=== PATIENT | female | born 1980 | race Two or more races ===

== ENCOUNTER 2025-01-27 20:02 | Emergency (ER) | payer OTHER, SELFPAY ==
[2025-01-27 20:06] VITALS: BP 224/126; PULSE 86; PULSE 91; RESP 18; TEMP 37; O2SAT 95; O2SAT 97
--- NOTE | 2025-01-27 20:13 | EKG_ITS ---
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
[2025-01-27 20:14] VITALS: BMI 44.2
--- NOTE | 2025-01-27 20:25 | PD.EDHA ---
ED Headache RME/HPI General Chief Complaint: Headache Stated Complaint: HEADACHE Time Seen by Provider: 01/27/25 20:23 Arrival date/time: 01/27/25 20:02 RME / HPI RME / HPI Narrative: Dr. Parker?s Main ED Evaluation: 44yo female with a history of HTN, DM BIBA from home presents to the ED for a chief complaint of gradually increasing headache that started at 1830. Patient notes having nausea, but no emesis. No visual disturbances or motor/sensory disturbances. Anknowledges sporadically taking antihypertensive medications, most recently 2 days FUNDRAISER. Baseline blood pressure is 140 systolically when controlled. Related Data Home Medications ?Medication ?Instructions ?Recorded ?Confirmed amlodipine 10 mg tablet (Norvasc) 10 mg PO QDAY 11/09/17 05/17/19 lisinopril 10 mg tablet 10 mg PO QDAY 11/09/17 05/17/19 metformin 500 mg tablet 1,000 mg PO BID 11/09/17 05/17/19 Previous Rx's ?Medication ?Instructions ?Recorded ibuprofen 600 mg tablet 600 mg PO Q8H PRN fever #30 tabs 11/09/17 albuterol sulfate 90 mcg/actuation 2 puff inhalation Q6H PRN cough / 07/11/20 aerosol inhaler wheezing #6.7 grams azithromycin 250 mg tablet See Rx Instructions PO .COMPLEX #6 07/11/20 (Zithromax) tabs inhalational spacing device #1 ea 07/11/20 (Aerochamber MV spacer) meclizine 25 mg tablet 25 mg PO BID PRN dizziness #10 tabs 02/19/22 amlodipine 5 mg tablet 5 mg PO QDAY #30 tabs 01/28/25 lisinopril 20 mg tablet 20 mg PO QDAY #30 tabs 01/28/25 Allergies Allergy/AdvReac Type Severity Reaction Status Date / Time topiramate Allergy Intermediate HEART Verified 02/19/22 16:55 STOPPED codeine Allergy Mild PROFUSE Verified 02/19/22 16:55 VOMIT Review of Systems Review of Systems Systems Reviewed: All systems reviewed, normal except as documented Past Medical History Past Medical History CARDIAC: Positive Cardiac Disorders and Hypertension; Negative Congestive Heart Failure RESPIRATORY: Negative Chronic Obstructive Pulmonary Disease (COPD) GENITOURINARY: Negative Renal Disease ENDOCRINE: Positive Endocrine Disorders and Diabetes Mellitus Type 2; Negative Diabetes Mellitus Type 1 Social History SMOKING STATUS: Never smoker ED Exam Narrative Physical exam: GENERAL APPEARANCE: alert and oriented x 4, markedly hypertensive, c/o headache, notably obese, well-developed, well-nourished, no acute distress VITALS: All vitals were reviewed and the pulse ox is 95% on room air, which is normal according to my interpretation. HEENT: Normocephalic, atraumatic; pupils equal, round, reactive to light; EOMI; mucous membranes pink, moist; oropharynx clear NECK: Supple LUNGS: CTABL; no wheezes, no rales, no rhonchi HEART: Regular rate, regular rhythm; normal S1, S2; no murmurs ABDOMEN: non distended; normal BS; soft, no tenderness, no guarding, no rebound; no masses, no organomegaly, no hernia BACK: no CVA tenderness EXTREMITIES: atraumatic; no edema NEUROLOGIC: awake; alert and oriented x4; cranial nerves II-XII grossly intact; no focal sensory or motor deficits PSYCHIATRIC: appropriate mood and affect SKIN: warm, dry, normal color; no rashes Course Quality Measures none Orders Category Date Time Status EKG (ED ONLY) *Do not use* NOW Care 01/27/25 20:14 Completed EKG (ED Only) Stat Exams 01/27/25 20:13 Draft XR chest 1V portable Stat Exams 01/27/25 21:30 Completed B-Type Natriuretic Peptide Stat Lab 01/27/25 21:19 Completed CBC Stat Lab 01/27/25 21:19 Completed Comprehensive Metabolic Panel Stat Lab 01/27/25 21:19 Completed Prothrombin Time with INR Stat Lab 01/27/25 21:19 Completed Troponin I Stat Lab 01/27/25 21:19 Completed Aspirin Med 01/27/25 21:13 Discontinued 325 mg PO X1 ONE Morphine Inj Med 01/27/25 20:29 Discontinued 4 mg IVP X1 ONE Nitroglycerin Oint 2% [Nitro-paste Oint 2%] Med 01/27/25 21:13 Discontinued 0.5 inch TOP X1 ONE Ondansetron Inj [Zofran Inj] Med 01/27/25 20:29 Discontinued 4 mg IVP X1 ONE hydrALAZINE INJ [Apresoline Inj] Med 01/27/25 20:29 Discontinued 10 mg IVP X1 ONE hydrALAZINE INJ [Apresoline Inj] Med 01/27/25 21:15 Discontinued 10 mg IVP X1 ONE hydrALAZINE INJ [Apresoline Inj] Med 01/27/25 21:16 Discontinued 10 mg IVP X1 ONE Vital Signs Vital signs: Vital Signs Temperature 98.6 F 01/27/25 20:06 Pulse Rate 86 01/27/25 20:06 Respiratory Rate 18 01/27/25 20:06 Blood Pressure 224/126 H 01/27/25 20:06 Pulse Oximetry (%) 95 01/27/25 20:06 Oxygen Delivery Method Room Air 01/27/25 20:06 Headache MDM Narrative MDM Narrative:: Scribe Attestation: 01/27/25 - Birgit Del Valle am scribing for and in the presence of Dr. Parker. 44yo female with a history of HTN, DM BIBA from home presents to the ED for a chief complaint of gradually increasing headache that started at 1830. Patient notes having nausea, but no emesis. Please see PE findings. Labs show normal CBC, Creatinine within normal limits, Gluc mildly elevated at 158, Potassium 3.2. Patient placed on a telemetry monitor and is notably hypertensive. Treated with IV fluids, incremental antihypertensives, low dose narcotic analgesics, and topical nitroglycerin with gradual reduction of blood pressure to acceptable limits. Patient has near resolution of her headache, therefore, will defer on any imaging studies. Remains neurologically intact. Patient was able prior to discharge without difficulty. Will re-establish antihypertensives, emphasize the need for compliance, and recommend close follow-up with PMD. Patient data External records reviewed:: [facility] previous records (Per chart review, patient was seen here on 02/19/22 for hypokalemia.) and EMS form Clinical information provided by:: patient Social determinants that could affect healthcare access:: none Patient has the following chronic illnesses:: HTN, DM How is presenting disease/condition affected by chronic disease/condition?: caused by Evaluation data The following diagnostics were reviewed and interpreted by me:: lab results, radiology exam(s) and EKG tracing(s) Lab and/or radiology exams considered but not ordered:: none Interpretation Summary: EKG done at 2017, NSR, rate of 76, no ST segment changes, left axis deviation, no ectopy, according to my interpretation. [facility] Report Signed Patient: KYRIE CARRERA Record#: [id number] Birthdate: 1980 Age/Sex: 44 / F Location: [facility] Attending Dr: Ordering Physician: Gary Payton DO Date of Service: 01/27/25 Procedure(s): XR chest 1V portable Accession Number(s): [id number] cc: Gary Payton DO; Landon Garcia MD; Abel Pepper MD~ Examination: AP chest single view TECHNIQUE: AP portable upright chest single view Date and time: January 27 at 2131 hours Comparison February 19, 2022 INDICATION: Chest pain and fever today FINDINGS: Normal heart size. Lungs are clear. The osseous structures are intact. IMPRESSION: No active disease. Dictated By: Abel Pepper MD Signed By: <Electronically signed by Abel Pepper MD in OV> 01/27/25 2141 Medications / Prescriptions Medications or Prescriptions considered but not ordered:: none Medication administrations:: Medication Administration History Discontinued Medications Aspirin (Aspirin 325 Mg Tablet) 325 mg PO X1 ONE Stop: 01/27/25 21:14 Last Admin: 01/27/25 21:24 Dose: 325 mg Documented By: CASEY Hydralazine HCl (Hydralazine Inj 20 Mg/Ml Vial) 10 mg IVP X1 ONE Stop: 01/27/25 20:30 Last Admin: 01/27/25 20:42 Dose: 10 mg Documented By: CASEY Hydralazine HCl (Hydralazine Inj 20 Mg/Ml Vial) 10 mg IVP X1 ONE Stop: 01/27/25 21:16 Last Admin: 01/27/25 21:24 Dose: 10 mg Documented By: CASEY Hydralazine HCl (Hydralazine Inj 20 Mg/Ml Vial) 10 mg IVP X1 ONE Stop: 01/27/25 21:17 Last Admin: 01/27/25 23:11 Dose: Not Given Documented By: CASEY Non-Admin Reason: Cancelled by Provider Morphine Sulfate (Morphine Sulf Inj 10 Mg/Ml Vial) 4 mg IVP X1 ONE Stop: 01/27/25 20:30 Last Admin: 01/27/25 20:43 Dose: 4 mg Documented By: CASEY Nitroglycerin (Nitroglycerin Oint 2% 1 Inch Packet) 0.5 inch TOP X1 ONE Stop: 01/27/25 21:14 Last Admin: 01/27/25 21:24 Dose: 0.5 inch Documented By: CASEY Ondansetron HCl (Ondansetron Inj 2 Mg/Ml Inj 2 Ml) 4 mg IVP X1 ONE; Protocol Stop: 01/27/25 20:30 Last Admin: 01/27/25 20:42 Dose: 4 mg Documented By: CASEY see above Consultations Consultation(s) initiated? (list below): No Diagnosis Differential diagnosis headache: migraine, tension headache and other (uncontrolled HTN) Most likely diagnosis given after review of the tests above:: see clinical impression below Admission Indicated Admission indicated?: not indicated Admission Request Was there a request for admission?: No Disposition Plan Disposition Plan: Discharge Discharge Attestation Discharge Attestation: The patient and all family members were given an opportunity to ask questions and understood the discharge instructions. Discharge instructions specifically effects, indications for sooner follow up or return to the emergency department, and the expected course of current diagnosis. Patient condition: Stable Discharge Plan Plan Patient Disposition: HOME (Self Care) Patient condition on transfer: Stable Prescriptions/Referrals Prescriptions/Med Rec: New lisinopril 20 mg tablet 20 mg PO QDAY Qty: 30 2RF amlodipine 5 mg tablet 5 mg PO QDAY Qty: 30 2RF No Action azithromycin [Zithromax] 250 mg tablet See Rx Instructions .ROUTE .COMPLEX Qty: 6 0RF Rx Instructions: take 500 mg today (day 1), then 250 mg for 4 days (days 2-5) albuterol sulfate 90 mcg/actuation HFA aerosol inhaler 2 puff INH Q6H PRN (Reason: cough / wheezing ) Qty: 6.7 0RF Rx Instructions: administer with spacer (DME) Aerochamber MV spacer See Dose Instructions .ROUTE .MEDSUPPLY Qty: 1 0RF Dose Instruction: As directed Rx Instructions: As directed metformin 500 mg Tablet 1,000 mg PO BID amlodipine [Norvasc] 10 mg Tablet 10 mg PO QDAY lisinopril 10 mg Tablet 10 mg PO QDAY ibuprofen 600 mg tablet 600 mg PO Q8H PRN (Reason: fever) Qty: 30 0RF meclizine 25 mg tablet 25 mg PO BID PRN (Reason: dizziness) Qty: 10 0RF Referrals: Landon Garcia MD [Primary Care Provider] - In 1 week Problem List Clinical Impression: Accelerated hypertension Patient/Caregiver Discharge Instructions Education Materials: Controlling High Blood Pressure, Blood Pressure Check Steps Additional Instructions: Begin medication as directed. Increase to twice daily if systolic blood pressures greater than 160 or diastolic greater than 95 consistently. Print Language: Welsh Stand Alone Forms: Gwendolyn Award Info., Patient Portal Info Letter
[2025-01-27 20:42] VITALS: BP 206/121; PULSE 69
[2025-01-27] MEDS: ONDANSETRON INJ 2 MG/ML INJ 2 ML 4 MG IVP (20:42)
[2025-01-27] MEDS: hydrALAZINE INJ 20 MG/ML VIAL 10 MG IVP ×2 (20:42→21:24)
[2025-01-27] MEDS: MORPHINE SULF INJ 10 MG/ML VIAL 4 MG IVP (20:43)
[2025-01-27 21:02] VITALS: BP 198/119; PULSE 83; RESP 18; O2SAT 98
[2025-01-27 21:24] VITALS: BP 206/126; PULSE 77; PULSE 79
[2025-01-27] MEDS: NITROGLYCERIN OINT 2% 1 INCH PACKET 0.5 INCH TOP (21:24)
--- NOTE | 2025-01-27 21:30 | XR_ITS ---
Examination: AP chest single view TECHNIQUE: AP portable upright chest single view Date and time: January 27 70,025 at 2131 hours Comparison February 19, 2022 INDICATION: Chest pain and fever today FINDINGS: Normal heart size. Lungs are clear. The osseous structures are intact. IMPRESSION: No active disease.
[2025-01-27 21:43] LABS: Basophils # (Auto) 0.0 Thou/mm3 (0.0-0.2); Basophils % (Auto) 0 % (0-2.5); Eosinophils # (Auto) 0.2 Thou/mm3 (0.0-0.5); Eosinophils % (Auto) 2 % (0-10); Hematocrit 36.8 % (36.0-46.0); Hemoglobin 13.2 g/dL (12.0-16.0); Immature Granulocytes Auto 0.03 Thou/mm3 (0.00-0.00); Lymphocytes # (Auto) 2.9 Thou/mm3 (1.0-4.8); Lymphocytes % (Auto) 28 % (10-50); Mean Corpuscular HGB Conc 35.9 g/dl (31.0-37.0); Mean Corpuscular Hemoglobin 28.7 pg (25.0-35.0); Mean Corpuscular Volume 80 fL (80-100); Monocytes # (Auto) 0.5 Thou/mm3 (0.0-0.8); Monocytes % (Auto) 5 % (0-12); Neutrophils # (Auto) 6.6 Thou/mm3 (1.8-7.7); Neutrophils % (Auto) 64 % (37-80); Nucleated Red Blood Cell # 0.00 Thou/mm3 (0.00-0.00); Nucleated Red Blood Cell % 0 /100 WBC (0); Platelet Count 364 Thou/mm3 (140-440); RDW Standard Deviation 37.6 fL (36.4-46.3); Red Blood Count 4.60 Miln/mm3 (4.00-5.20); White Blood Count 10.2 Thou/mm3 (3.6-11.0)
[2025-01-27 21:48] VITALS: BP 163/97; PULSE 82; RESP 20; O2SAT 99
[2025-01-27 22:00] LABS: INR 1.0 (0.9-1.3); Prothrombin Time 10.9 Seconds (9.0-12.2)
[2025-01-27 22:03] LABS: Alanine Aminotransferase 11 U/L (10-49); Albumin, Serum 4.1 gm/dL (3.5-5.0); Albumin/Globulin Ratio 1.5 (1.2-2.2); Alkaline Phosphatase 57 U/L (46-116); Anion Gap 13 (7-16); Aspartate Amino Transferase 11 U/L (0-34); BUN/Creatinine Ratio 13 Ratio (12-20); Bilirubin,Total 0.4 mg/dL (0.3-1.2); Blood Urea Nitrogen 10 mg/dL (9-23); Calcium 9.3 mg/dL (8.3-10.6); Calcium (Corrected) 9.3 mg/dL (8.5-10.1); Carbon Dioxide 25.0 mMol/L (20.0-31.0); Chloride 103 mMol/L (98-107); Creatinine (Component) 0.8 mg/dL (0.6-1.3); Estimated Creatinine Clearance 106.5 mL/min (>60); Globulin 2.7 gm/dL (2.3-3.5); Glucose 158 mg/dL (74-106); Osmolality,Calculated 283 (275-295); Potassium 3.2 mMol/L (3.4-5.1); Sodium 141 mMol/L (136-145); Total Protein 6.8 gm/dL (5.7-8.2); Troponin I < 0.020 ng/mL (0.0-0.045); eGFR > 60 See Note
[2025-01-27 22:04] LABS: B-Type Natriuretic Peptide < 20 pg/mL (0-100)
[2025-01-27 22:31] VITALS: BP 167/92; PULSE 77; RESP 19; TEMP 37.2; O2SAT 99
[2025-01-28] VITALS: BP 156/88; PULSE 89; RESP 18; TEMP 36.8; O2SAT 99
== END 2025-01-28 00:41 | disposition home or self-care (01) ==
PROVIDERS: Emergency Provider Emergency Medicine; PCP Family Medicine
DX: I10 Essential (primary) hypertension (principal); R07.9 Chest pain, unspecified
CPT/HCPCS: 36415; 71045; 80053; 83880; 84484; 85025; 85610; 96372; 96374; 96375; 96376; 99283; J0360; J2270; J2405; A9270

== ENCOUNTER 2025-07-19 11:07 | Emergency (ER) | payer OTHER, SELFPAY ==
--- NOTE | 2025-07-19 11:43 | XR_ITS ---
Examination: CT abdomen and pelvis without contrast. Coronal 3-D reconstructions. Sagittal 2-D reconstructions. Date and time of exam: July 19, 2025, 1703 hours INDICATIONS: Onset right-sided flank pain today and beginning 3 weeks ago CTDI: vol (mGy): 18.4 DLP: (mGycm): 1100 Technique: Axial images of the abdomen have been obtained, 3 mm slice thickness Intravenous contrast material has not been administered. Low dose protocols were performed. One or more of the following dose reduction techniques were used; automated exposure control, adjustment of the mA and/or KV according to patient size, use of iterative reconstruction technique. Findings: Moderate hepatomegaly liver mildly irregular in contour no focal liver lesions No gallstones No pancreatic splenic or adrenal mass Mild to moderate bilateral renal scar formation 2 mm lower pole right renal calculus 2 mm lower pole left renal calculus No hydronephrosis or ureteral calculi Aorta normal size Appendix is mildly thickened although no definite inflammatory change, clinical correlation advised No pelvic abscess 23 mm fat-containing umbilical hernia No bowel obstruction Absent uterus Contracted urinary bladder No pelvic mass Mild disc narrowing L5-S1 IMPRESSION: Mild to moderate bilateral renal scar formation Tiny bilateral nonobstructing renal calculi, no hydronephrosis or ureteral calculi Appendix is mildly thickened although no definite inflammatory change, clinical correlation advised, if acute appendicitis is a clinical consideration recommend repeat CT scan abdomen pelvis post intravenous contrast
--- NOTE | 2025-07-19 11:43 | PD.EDFMALE ---
ED Female Urogenital RME/HPI General Chief complaint: Urogenital-Female Stated complaint: R) KIDNEY SPASMS Time Seen by Provider: 07/19/25 11:20 Source: patient Arrival date/time: 07/19/25 11:07 45-year-old female with no known medical history presents to the emergency room with a chief complaint of right flank pain x 2 days Mode of arrival: ambulatory Limitations: no limitations Related Data Home Medications ?Medication ?Instructions ?Recorded ?Confirmed amlodipine 10 mg tablet (Norvasc) 10 mg PO QDAY 11/09/17 05/17/19 lisinopril 10 mg tablet 10 mg PO QDAY 11/09/17 05/17/19 metformin 500 mg tablet 1,000 mg PO BID 11/09/17 05/17/19 Previous Rx's ?Medication ?Instructions ?Recorded ibuprofen 600 mg tablet 600 mg PO Q8H PRN fever #30 tabs 11/09/17 albuterol sulfate 90 mcg/actuation 2 puff inhalation Q6H PRN cough / 07/11/20 aerosol inhaler wheezing #6.7 grams azithromycin 250 mg tablet See Rx Instructions PO .COMPLEX #6 07/11/20 (Zithromax) tabs inhalational spacing device #1 ea 07/11/20 (Aerochamber MV spacer) meclizine 25 mg tablet 25 mg PO BID PRN dizziness #10 tabs 02/19/22 amlodipine 5 mg tablet 5 mg PO QDAY #30 tabs 01/28/25 lisinopril 20 mg tablet 20 mg PO QDAY #30 tabs 01/28/25 Allergies Allergy/AdvReac Type Severity Reaction Status Date / Time topiramate Allergy Intermediate HEART Verified 07/19/25 11:10 STOPPED codeine Allergy Mild PROFUSE Verified 07/19/25 11:10 VOMIT Review of Systems Review of Systems Systems Reviewed: All systems reviewed, normal except as documented Constitutional Constitutional: Reports system reviewed and no additional complaints, except as documented, Denies fatigue, Denies fever(s), Denies headache(s) and Denies weakness Eyes Eyes: Reports system reviewed and no additional complaints, except as documented, Denies blurry vision and Denies change in vision ENT Ears, Nose, Mouth, and Throat: Reports system reviewed and no additional complaints, except as documented, Denies otalgia, Denies headache(s), Denies nasal congestion, Denies throat swelling and Denies vertigo Cardiovascular Cardiovascular: Reports system reviewed and no additional complaints, except as documented, Denies chest pain, Denies dyspnea and Denies dyspnea on exertion Respiratory Respiratory: Reports system reviewed and no additional complaints, except as documented, Denies chest congestion, Denies cough, Denies dyspnea, Denies dyspnea on exertion and Denies wheezing Gastrointestinal Gastrointestinal: Reports system reviewed and no additional complaints, except as documented, Reports abdominal pain, Denies cramping, Denies nausea and Denies vomiting Genitourinary Genitourinary: Reports system reviewed and no additional complaints, except as documented Musculoskeletal Musculoskeletal: Reports system reviewed and no additional complaints, except as documented and Reports back pain Integumentary/Breasts Skin/Breast: Reports system reviewed and no additional complaints, except as documented and Denies wounds Neurologic Neurologic: Reports system reviewed and no additional complaints, except as documented, Denies confusion, Denies headache(s), Denies lack of coordination, Denies vertigo and Denies weakness Psychiatric Psychiatric: Reports system reviewed and no additional complaints, except as documented, Denies anxiety, Denies confusion, Denies depression, Denies paranoia, Denies suicidal ideation and Denies tactile hallucinations Endocrine Endocrine: Reports system reviewed and no additional complaints, except as documented and Denies fatigue Hematologic/Lymphatic Hematologic/Lymphatic: Reports system reviewed and no additional complaints, except as documented and Denies lymphadenopathy Allergic/Immunologic Allergic/Immunologic: Reports system reviewed and no additional complaints, except as documented, Denies throat swelling, Denies urticaria and Denies wheezing Past Medical History Past Medical History CARDIAC: Positive Cardiac Disorders and Hypertension; Negative Congestive Heart Failure RESPIRATORY: Negative Chronic Obstructive Pulmonary Disease (COPD) GENITOURINARY: Negative Renal Disease ENDOCRINE: Positive Endocrine Disorders and Diabetes Mellitus Type 2; Negative Diabetes Mellitus Type 1 Social History SMOKING STATUS: Never smoker ED Exam General Limitations: Present no limitations General appearance: Present alert and in no apparent distress Head Head exam: Present atraumatic Eye Eye exam: Present normal appearance, PERRL and EOMI ENT ENT exam: Present normal exam, normal oropharynx and mucous membranes moist Neck Neck exam: Present normal inspection, full ROM and trachea midline Chest Chest inspection: Present normal inspection and symmetric chest wall rise Respiratory Respiratory exam: Present normal lung sounds bilaterally Cardiovascular Cardiovascular exam: Present regular rate, normal rhythm and normal heart sounds Abdominal Exam Abdominal exam: Present soft, tenderness and normal bowel sounds; Absent distention, guarding, rebound or rigidity Abdominal tenderness: Absent RUQ, RLQ, LUQ or LLQ Extremities Exam Extremities exam: Present normal inspection and full ROM Back Exam Back exam: Present normal inspection, full ROM, tenderness and CVA tenderness (R) Neurological Exam Neurological exam: Present alert, oriented X3 and CN II-XII intact Psychiatric Psychiatric exam: Present normal affect and normal mood Skin Skin exam: Present warm, dry, intact and normal color Course Orders Category Date Time Status CT abdomen pelvis wo con Stat Exams 07/19/25 11:43 Ordered CBC Stat Lab 07/19/25 11:57 Completed CMP [Comprehensive Metabolic Panel] Stat Lab 07/19/25 11:57 Completed HCG Qualitative,Urine Stat Lab 07/19/25 11:43 Ordered Lipase Stat Lab 07/19/25 11:57 Completed UA [Urinalysis] Stat Lab 07/19/25 11:43 Ordered Urine Culture Stat Lab 07/19/25 11:43 Ordered Vital Signs Vital signs: Vital Signs Temperature 99.0 F 07/19/25 11:48 Pulse Rate 90 07/19/25 11:48 Respiratory Rate 18 07/19/25 11:48 Blood Pressure 182/110 H 07/19/25 11:48 Pulse Oximetry (%) 99 07/19/25 11:48 Oxygen Delivery Method Room Air 07/19/25 11:48 Urogenital - Female MDM Narrative MDM Narrative:: 45-year-old female with no known medical history presents to the emergency room with a chief complaint of right flank pain x 2 days Patient data External records reviewed:: [facility] previous records Clinical information provided by:: patient Social determinants that could affect healthcare access:: none Patient has the following chronic illnesses:: No chronic illness How is presenting disease/condition affected by chronic disease/condition?: no chronic disease Evaluation data The following diagnostics were reviewed and interpreted by me:: lab results and radiology exam(s) Lab and/or radiology exams considered but not ordered:: Labs and radiology exams considered and ordered Interpretation Summary: CT abdomen and pelvis- Medications / Prescriptions Medications or Prescriptions considered but not ordered:: No medication given Medication administrations:: No medication given Consultations Consultation(s) initiated? (list below): No Diagnosis Urogenital Female Differential Diagnosis: urinary tract infection, cystitis and other (Renal calculi) Admission Indicated Admission indicated?: not indicated Admission Request Was there a request for admission?: No Disposition Plan Disposition Plan: Discharge Discharge Attestation Discharge Attestation: The patient and all family members were given an opportunity to ask questions and understood the discharge instructions. Discharge instructions specifically effects, indications for sooner follow up or return to the emergency department, and the expected course of current diagnosis. Patient condition: Stable Discharge Plan Prescriptions/Referrals Prescriptions/Med Rec: No Action azithromycin [Zithromax] 250 mg tablet See Rx Instructions .ROUTE .COMPLEX Qty: 6 0RF Rx Instructions: take 500 mg today (day 1), then 250 mg for 4 days (days 2-5) albuterol sulfate 90 mcg/actuation HFA aerosol inhaler 2 puff INH Q6H PRN (Reason: cough / wheezing ) Qty: 6.7 0RF Rx Instructions: administer with spacer (DME) Aerochamber MV spacer See Dose Instructions .ROUTE .MEDSUPPLY Qty: 1 0RF Dose Instruction: As directed Rx Instructions: As directed metformin 500 mg Tablet 1,000 mg PO BID amlodipine [Norvasc] 10 mg Tablet 10 mg PO QDAY lisinopril 10 mg Tablet 10 mg PO QDAY ibuprofen 600 mg tablet 600 mg PO Q8H PRN (Reason: fever) Qty: 30 0RF meclizine 25 mg tablet 25 mg PO BID PRN (Reason: dizziness) Qty: 10 0RF lisinopril 20 mg tablet 20 mg PO QDAY Qty: 30 2RF amlodipine 5 mg tablet 5 mg PO QDAY Qty: 30 2RF Referrals: Landon Garcia MD [Primary Care Provider, Family Practice] - In 1 week Patient/Caregiver Discharge Instructions Print Language: Yakut
[2025-07-19 11:48] VITALS: BP 182/110; PULSE 90; RESP 18; TEMP 37.2; O2SAT 99; BMI 43.4
[2025-07-19 12:10] LABS: Basophils # (Auto) 0.0 Thou/mm3 (0.0-0.2); Basophils % (Auto) 0 % (0-2.5); Eosinophils # (Auto) 0.2 Thou/mm3 (0.0-0.5); Eosinophils % (Auto) 3 % (0-10); Hematocrit 39.4 % (36.0-46.0); Hemoglobin 13.6 g/dL (12.0-16.0); Immature Granulocytes Auto 0.03 Thou/mm3 (0.00-0.00); Lymphocytes # (Auto) 2.1 Thou/mm3 (1.0-4.8); Lymphocytes % (Auto) 28 % (10-50); Mean Corpuscular HGB Conc 34.5 g/dl (31.0-37.0); Mean Corpuscular Hemoglobin 28.2 pg (25.0-35.0); Mean Corpuscular Volume 82 fL (80-100); Monocytes # (Auto) 0.3 Thou/mm3 (0.0-0.8); Monocytes % (Auto) 4 % (0-12); Neutrophils # (Auto) 4.9 Thou/mm3 (1.8-7.7); Neutrophils % (Auto) 65 % (37-80); Nucleated Red Blood Cell # 0.00 Thou/mm3 (0.00-0.00); Nucleated Red Blood Cell % 0 /100 WBC (0); Platelet Count 334 Thou/mm3 (140-440); RDW Standard Deviation 37.8 fL (36.4-46.3); Red Blood Count 4.82 Miln/mm3 (4.00-5.20); White Blood Count 7.6 Thou/mm3 (3.6-11.0)
[2025-07-19 12:29] LABS: Alanine Aminotransferase 12 U/L (10-49); Albumin, Serum 4.5 gm/dL (3.5-5.0); Albumin/Globulin Ratio 1.5 (1.2-2.2); Alkaline Phosphatase 71 U/L (46-116); Anion Gap 9 (7-16); Aspartate Amino Transferase 14 U/L (0-34); BUN/Creatinine Ratio 9 Ratio (12-20); Bilirubin,Total 0.3 mg/dL (0.3-1.2); Blood Urea Nitrogen 7 mg/dL (9-23); Calcium 9.0 mg/dL (8.3-10.6); Calcium (Corrected) 9.0 mg/dL (8.5-10.1); Carbon Dioxide 29.4 mMol/L (20.0-31.0); Chloride 101 mMol/L (98-107); Creatinine (Component) 0.8 mg/dL (0.6-1.3); Estimated Creatinine Clearance 104.2 mL/min (>60); Globulin 3.0 gm/dL (2.3-3.5); Glucose 298 mg/dL (74-106); Lipase 34 U/L (12-53); Osmolality,Calculated 286 (275-295); Potassium 3.4 mMol/L (3.4-5.1); Sodium 139 mMol/L (136-145); Total Protein 7.5 gm/dL (5.7-8.2); eGFR > 60 See Note
--- NOTE | 2025-07-19 15:40 | PD.EDRME ---
Rapid Medical Screening Exam RME Arrival date/time: 07/19/25 11:07 45-year-old female with no known medical history presents to the emergency room with a chief complaint of right flank pain x 2 days I have greeted and performed a focused initial assessment of this patient. A comprehensive ED assessment and evaluation of the patient, analysis of all test results, and completion of the medical decision making process will be conducted by additional ED providers. Chief Complaint: Urogenital-Female Time Seen by Provider: 07/19/25 11:20 Vital signs: Vital Signs Temperature 99.0 F 07/19/25 11:48 Pulse Rate 90 07/19/25 11:48 Respiratory Rate 18 07/19/25 11:48 Blood Pressure 182/110 H 07/19/25 11:48 Pulse Oximetry (%) 99 07/19/25 11:48 Oxygen Delivery Method Room Air 07/19/25 11:48 Vital signs reviewed by provider: Yes Exam: Right CVA tenderness with palpation Soft nontender abdomen Clinical Impression: Ureteral calculi
[2025-07-19 15:49] LABS: Collection Type, Urine Clean Catch; RBC,Urine 0 /hpf (0-3)
[2025-07-19 16:12] LABS: Bacteria,Urine Rare; Bilirubin,Urine Negative (Negative); Blood,Urine Negative (Negative); Clarity,Urine Clear (Clear/Hazy); Color,Urine Yellow (Lt Yel-Yel); Glucose, Urine 4+ (Negative); Ketones,Urine Negative (Negative); Leukocyte Esterase,Urine Positive (Negative); Nitrite,Urine Negative (Negative); PH,Urine 6.0 (5.0-7.0); Protein,Urine Trace (Neg - Trace); Specific Gravity,Urine 1.036 (1.001-1.035); Squamous Epithelial Cell,Urine 3 /hpf (0-5); Urobilinogen,Urine Negative mg/dL (0.0-1.0); WBC,Urine 12 /hpf (0-5)
[2025-07-19 16:13] LABS: HCG Qualitative,Urine Negative
[2025-07-19 16:21] LABS: HCG,Qualitative Serum Negative
--- NOTE | 2025-07-19 19:09 | PD.EDRME ---
Rapid Medical Screening Exam RME Arrival date/time: 07/19/25 11:07 07/19/25 11:07 45-year-old female with no known medical history presents to the emergency room with a chief complaint of right flank pain x 2 days I have greeted and performed a focused initial assessment of this patient. A comprehensive ED assessment and evaluation of the patient, analysis of all test results, and completion of the medical decision making process will be conducted by additional ED providers. Chief Complaint: Urogenital-Female Time Seen by Provider: 07/19/25 11:20 Vital signs: Vital Signs Temperature 99.0 F 07/19/25 11:48 Pulse Rate 90 07/19/25 11:48 Respiratory Rate 18 07/19/25 11:48 Blood Pressure 182/110 H 07/19/25 11:48 Pulse Oximetry (%) 99 07/19/25 11:48 Oxygen Delivery Method Room Air 07/19/25 11:48 RME Narrative: 07/19/25 11:07 45-year-old female with no known medical history presents to the emergency room with a chief complaint of right flank pain x 2 days I have greeted and performed a focused initial assessment of this patient. A comprehensive ED assessment and evaluation of the patient, analysis of all test results, and completion of the medical decision making process will be conducted by additional ED providers. Exam: Right CVA tenderness with palpation Soft nontender abdomen Clinical Impression: Ureteral calculi
[2025-07-19 19:15] VITALS: BP 198/109; PULSE 82; RESP 19; TEMP 36.7; O2SAT 100
--- NOTE | 2025-07-19 19:16 | PD.EDFMALE ---
ED Female Urogenital RME/HPI General Chief complaint: Urogenital-Female Stated complaint: R) KIDNEY SPASMS Time Seen by Provider: 07/19/25 11:20 Arrival date/time: 07/19/25 11:07 RME / HPI RME / HPI Narrative: 07/19/25 11:07 45-year-old female with no known medical history presents to the emergency room with a chief complaint of right flank pain x 2 days I have greeted and performed a focused initial assessment of this patient. A comprehensive ED assessment and evaluation of the patient, analysis of all test results, and completion of the medical decision making process will be conducted by additional ED providers. Dr. Wood?s Main ED Evaluation: 45yo female with a history of DM, HTN presents to the ED for right mid back pain. Of note, patient has been here for 8 hours prior to my evaluation. Patient states she started having right mid back pain 2 days ago, reporting it's progressively gotten worse. No radiation or migration. Patient was concerned she had a kidney infection, so she came in for evaluation. Patient denies any fever, chills, N/V, dysuria, or any other assocaited symptoms. Related Data Home Medications ?Medication ?Instructions ?Recorded ?Confirmed amlodipine 10 mg tablet (Norvasc) 10 mg PO QDAY 11/09/17 05/17/19 lisinopril 10 mg tablet 10 mg PO QDAY 11/09/17 05/17/19 metformin 500 mg tablet 1,000 mg PO BID 11/09/17 05/17/19 Previous Rx's ?Medication ?Instructions ?Recorded ibuprofen 600 mg tablet 600 mg PO Q8H PRN fever #30 tabs 11/09/17 albuterol sulfate 90 mcg/actuation 2 puff inhalation Q6H PRN cough / 07/11/20 aerosol inhaler wheezing #6.7 grams azithromycin 250 mg tablet See Rx Instructions PO .COMPLEX #6 07/11/20 (Zithromax) tabs inhalational spacing device #1 ea 07/11/20 (Aerochamber MV spacer) meclizine 25 mg tablet 25 mg PO BID PRN dizziness #10 tabs 02/19/22 amlodipine 5 mg tablet 5 mg PO QDAY #30 tabs 01/28/25 lisinopril 20 mg tablet 20 mg PO QDAY #30 tabs 01/28/25 Allergies Allergy/AdvReac Type Severity Reaction Status Date / Time topiramate Allergy Intermediate HEART Verified 07/19/25 11:10 STOPPED codeine Allergy Mild PROFUSE Verified 07/19/25 11:10 VOMIT Review of Systems Review of Systems Systems Reviewed: All systems reviewed, normal except as documented Past Medical History Past Medical History CARDIAC: Positive Cardiac Disorders and Hypertension; Negative Congestive Heart Failure RESPIRATORY: Negative Chronic Obstructive Pulmonary Disease (COPD) GENITOURINARY: Negative Renal Disease ENDOCRINE: Positive Endocrine Disorders and Diabetes Mellitus Type 2; Negative Diabetes Mellitus Type 1 Social History SMOKING STATUS: Never smoker ED Exam Narrative Physical exam: Generally patient is alert and in no obvious distress, heart regular rate and rhythm, lungs show auscultation equal bilaterally, abdomen soft bowel sounds present also nontender, musculoskeletal exam showed the patient have reproducible tenderness above the right costophrenic angle., Skin is warm pale and dry without rash, neurologic exam shows [place] Coma Scale of 15 without focal motor deficit Course Quality Measures none Orders Category Date Time Status CT abdomen pelvis wo con Stat Exams 07/19/25 11:43 Completed CBC Stat Lab 07/19/25 11:57 Completed CMP [Comprehensive Metabolic Panel] Stat Lab 07/19/25 11:57 Completed HCG Qualitative,Urine Stat Lab 07/19/25 14:20 Completed HCG,Qualitative Serum Stat Lab 07/19/25 11:57 Completed Lipase Stat Lab 07/19/25 11:57 Completed UA [Urinalysis] Stat Lab 07/19/25 14:20 Completed Urine Culture Stat Lab 07/19/25 14:20 Received Ketorolac Inj [Toradol Inj] Med 07/19/25 19:26 Once 30 mg IM X1 ONE Vital Signs Vital signs: Vital Signs Temperature 99.0 F 07/19/25 11:48 Pulse Rate 90 07/19/25 11:48 Respiratory Rate 18 07/19/25 11:48 Blood Pressure 182/110 H 07/19/25 11:48 Pulse Oximetry (%) 99 07/19/25 11:48 Oxygen Delivery Method Room Air 07/19/25 11:48 Urogenital - Female MDM Narrative MDM Narrative:: Scribe Attestation: 07/19/25 - Birgit Del Valle am scribing for and in the presence of Dr. Wood. Interpreted all labs and result of the CT scan. CT scan shows small bilateral nephrolithiasis without ureterolithiasis or hydronephrosis. Urine showed no evidence of infection. On clinical exam patient has musculoskeletal pain. Patient received Toradol 30 mg IM. She is to take Tylenol and ibuprofen for pain. She does have a history of hypertension. She needs to take her medication tonight. Blood pressure has been slightly elevated here in the emergency room. Patient discharged in stable condition to go home and take her blood pressure medication as prescribed. Follow-up with her doctor. Return to ER as needed or if condition worsens. Patient data External records reviewed:: [facility] previous records (Per chart review, patient was seen here on 01/27/25 for accelerated hypertension.) Clinical information provided by:: patient Social determinants that could affect healthcare access:: none Patient has the following chronic illnesses:: DM, HTN How is presenting disease/condition affected by chronic disease/condition?: uneffected by Evaluation data The following diagnostics were reviewed and interpreted by me:: lab results and radiology exam(s) Lab and/or radiology exams considered but not ordered:: none Interpretation Summary: [facility] Report Signed Patient: KYRIE CARRERA Record#: [id number] Birthdate: 1980 Age/Sex: 45 / F Location: [facility] Attending Dr: Ordering Physician: Merlin Sanchez Date of Service: 07/19/25 Procedure(s): CT abdomen pelvis wo con Accession Number(s): [id number] cc: Merlin Sanchez; Landon Garcia MD; Abel Pepper MD~ Examination: CT abdomen and pelvis without contrast. Coronal 3-D reconstructions. Sagittal 2-D reconstructions. Date and time of exam: July 19, 2025, 1703 hours INDICATIONS: Onset right-sided flank pain today and beginning 3 weeks ago CTDI: vol (mGy): 18.4 DLP: (mGycm): 1100 Technique: Axial images of the abdomen have been obtained, 3 mm slice thickness Intravenous contrast material has not been administered. Low dose protocols were performed. One or more of the following dose reduction techniques were used; automated exposure control, adjustment of the mA and/or KV according to patient size, use of iterative reconstruction technique. Findings: Moderate hepatomegaly liver mildly irregular in contour no focal liver lesions No gallstones No pancreatic splenic or adrenal mass Mild to moderate bilateral renal scar formation 2 mm lower pole right renal calculus 2 mm lower pole left renal calculus No hydronephrosis or ureteral calculi Aorta normal size Appendix is mildly thickened although no definite inflammatory change, clinical correlation advised No pelvic abscess 23 mm fat-containing umbilical hernia No bowel obstruction Absent uterus Contracted urinary bladder No pelvic mass Mild disc narrowing L5-S1 IMPRESSION: Mild to moderate bilateral renal scar formation Tiny bilateral nonobstructing renal calculi, no hydronephrosis or ureteral calculi Appendix is mildly thickened although no definite inflammatory change, clinical correlation advised, if acute appendicitis is a clinical consideration recommend repeat CT scan abdomen pelvis post intravenous contrast Dictated By: Abel Pepper MD Signed By: <Electronically signed by Abel Pepper MD in OV> 07/19/25 8838 Medications / Prescriptions Medications or Prescriptions considered but not ordered:: none Medication administrations:: see above Consultations Consultation(s) initiated? (list below): No Diagnosis Urogenital Female Differential Diagnosis: other (See MDM) Most likely diagnosis given after review of the tests above:: see clinical impression below Admission Indicated Admission indicated?: not indicated Admission Request Was there a request for admission?: No Disposition Plan Disposition Plan: Discharge Discharge Attestation Discharge Attestation: The patient and all family members were given an opportunity to ask questions and understood the discharge instructions. Discharge instructions specifically effects, indications for sooner follow up or return to the emergency department, and the expected course of current diagnosis. Patient condition: Stable Discharge Plan Plan Patient Disposition: HOME (Self Care) Prescriptions/Referrals Prescriptions/Med Rec: No Action azithromycin [Zithromax] 250 mg tablet See Rx Instructions .ROUTE .COMPLEX Qty: 6 0RF Rx Instructions: take 500 mg today (day 1), then 250 mg for 4 days (days 2-5) albuterol sulfate 90 mcg/actuation HFA aerosol inhaler 2 puff INH Q6H PRN (Reason: cough / wheezing ) Qty: 6.7 0RF Rx Instructions: administer with spacer (DME) Aerochamber MV spacer See Dose Instructions .ROUTE .MEDSUPPLY Qty: 1 0RF Dose Instruction: As directed Rx Instructions: As directed metformin 500 mg Tablet 1,000 mg PO BID amlodipine [Norvasc] 10 mg Tablet 10 mg PO QDAY lisinopril 10 mg Tablet 10 mg PO QDAY ibuprofen 600 mg tablet 600 mg PO Q8H PRN (Reason: fever) Qty: 30 0RF meclizine 25 mg tablet 25 mg PO BID PRN (Reason: dizziness) Qty: 10 0RF lisinopril 20 mg tablet 20 mg PO QDAY Qty: 30 2RF amlodipine 5 mg tablet 5 mg PO QDAY Qty: 30 2RF Referrals: Landon Garcia MD [Primary Care Provider, Family Practice] - In 1 week Problem List Clinical Impression: Musculoskeletal back pain, Poorly-controlled hypertension Patient/Caregiver Discharge Instructions Additional Instructions: You may take Tylenol and ibuprofen for pain. Take your blood pressure medication as prescribed. Follow-up with your doctor. Return to ER as needed or if condition worsens. Print Language: Hebrew Stand Alone Forms: Gwendolyn Award Info., Patient Portal Info Letter
[2025-07-19] MEDS: KETOROLAC INJ 30 MG/ML VIAL IM (19:56)
== END 2025-07-19 20:10 | disposition home or self-care (01) ==
PROVIDERS: Nurse Practitioner Family; Emergency Provider Emergency Medicine; PCP Family Medicine
DX: M54.6 Pain in thoracic spine (principal); I10 Essential (primary) hypertension; N20.0 Calculus of kidney; N28.89 Other specified disorders of kidney and ureter; K38.8 Other specified diseases of appendix
CPT/HCPCS: 36415; 74176; 80053; 81001; 81025; 83690; 84703; 85025; 87086; 96372; 99283; J1885